=== PATIENT | female | born 1980 | race Caucasian/White ===

== ENCOUNTER 2017-11-09 09:52 | Emergency (ER) | payer OTHER ==
[2017-11-09] MEDS ORDERED: TORAdol 30 mg Injection IV ONE (10:04)
--- NOTE | 2017-11-09 10:08 | ERPHSYRPT ---
- History of Present Illness Time Seen by Provider: 11/09/17 10:00 Historian: patient Exam Limitations: no limitations Patient Subjective Stated Complaint: pt here for pain to left side of chest for 4 days, no injury, no fever . has not tried any otc Triage Nursing Assessment: pt alert, resp easy. skin w/d/p. no edema, Physician History: 37 y/o female comes to the ER with complaints of left sided chest pain that started 4 days ago. Pt describes the pain as a squeezing sensation, constant, worse with inspiration, 8/10 and pt has not taken any pain meds. Pt admits to mild cough that started yesterday. Pt denies any shortness of breath, palpitations or dizziness. Pt also denies any illicit drug use and has not been lifting any heavy objects. Pt has a significant family history with her father having an WA in his 30's. Timing/Duration: day(s) Activities at Onset: none Quality: stabbing Location: other (left chest) Chest Pain Radiation: no radiation Severity of Pain-Max: moderate Severity of Pain-Current: moderate Modifying Factors: Improves With: movement Associated Symptoms: denies symptoms Prior Chest Pain/Cardiac Workup: no prior chest pain Nitro Today/Relief: no nitro taken today Aspirin Treatment Today: no aspirin today Allergies/Adverse Reactions: Penicillins Allergy (Verified 11/09/17 10:04) Immunizations Up to Date: Yes - Review of Systems Constitutional: No Fever, No Chills Eyes: No Symptoms Ears, Nose, & Throat: No Symptoms Respiratory: No Cough, No Dyspnea Cardiac: Chest Pain, No Edema, No Syncope Abdominal/Gastrointestinal: No Abdominal Pain, No Nausea, No Vomiting, No Diarrhea Genitourinary Symptoms: No Dysuria Musculoskeletal: No Back Pain, No Neck Pain Skin: No Rash Neurological: No Dizziness, No Focal Weakness, No Sensory Changes Psychological: No Symptoms Endocrine: No Symptoms All Other Systems: Reviewed and Negative - Past Medical History Pertinent Past Medical History: No - Past Surgical History Past Surgical History: Yes Female Surgical History: Tubal Ligation - Social History Smoking Status: Current every day smoker Exposure to second hand smoke: Yes Drug Use: none Patient Lives Alone: No - Female History Hx Last Menstrual Period: 2 days ago Hx Now: No - Nursing Vital Signs Nursing Vital Signs: Initial Vital Signs Temperature 97.8 F 11/09/17 09:56 Pulse Rate 74 08/24/18 09:56 Respiratory Rate 16 11/09/17 09:56 Blood Pressure 124/85 11/09/17 09:56 O2 Sat by Pulse Oximetry 100 11/09/17 09:56 Pain Scale Pain Intensity 8 - Physical Exam General Appearance: no apparent distress, alert Eye Exam: PERRL/EOMI, eyes nml inspection Ears, Nose, Throat Exam: normal ENT inspection, moist mucous membranes Neck Exam: normal inspection, non-tender, supple, full range of motion Respiratory Exam: normal breath sounds, chest tenderness, lungs clear, No respiratory distress Cardiovascular Exam: regular rate/rhythm, normal heart sounds, normal peripheral pulses Gastrointestinal/Abdomen Exam: soft, No tenderness, No mass Back Exam: normal inspection, No CVA tenderness, No vertebral tenderness Extremity Exam: normal inspection, normal range of motion Neurologic Exam: alert, oriented x 3, cooperative, normal mood/affect, sensation nml, No motor deficits Skin Exam: normal color, warm, dry SpO2: 100 Oxygen Delivery: Room Air - Course Nursing assessment & vital signs reviewed: Yes EKG Interpreted by Me: RATE, NORMAL AXIS, NORMAL INTERVALS, NORMAL QRS, NORMAL ST-T Ordered Tests: Active Orders 24 hr Category Date Time Status Administrative Support Manager STAT Care 11/09/17 10:03 Active EKG-ER Only STAT Care 11/09/17 10:03 Active IV Insertion STAT Care 11/09/17 10:03 Active CHEST 2 VIEWS (PA AND LAT) Stat Exams 11/09/17 10:03 Taken CBC W DIFF Stat Lab 11/09/17 10:26 Completed CK-Creatinine Phosphokinase Stat Lab 11/09/17 10:26 Completed CMP Stat Lab 11/09/17 10:26 Completed HCG QUALITATIVE,SERUM Stat Lab 11/09/17 10:24 Completed TROPONIN Q3H Lab 11/09/17 10:26 Completed TROPONIN Q3H Lab 11/09/17 13:15 Ordered TROPONIN Q3H Lab 11/09/17 16:15 Ordered TROPONIN Q3H Lab 11/09/17 19:15 Ordered TROPONIN Q3H Lab 11/09/17 22:15 Ordered Medication Summary Discontinued Medications Generic Name Dose Route Start Last Admin Trade Name Freq PRN Reason Stop Dose Admin Ketorolac Tromethamine 30 mg 11/09/17 10:04 11/09/17 10:44 Toradol 30 Mg Injection IV 11/09/17 10:05 30 mg STAT ONE Administration Ketorolac Tromethamine Confirm 11/09/17 10:43 Toradol 30 Mg Injection Administered 11/09/17 10:44 Dose 30 mg .ROUTE .STK-MED ONE Lab/Rad Data: Laboratory Result Diagrams 11/09/17 10:26 11/09/17 10:26 Laboratory Results 11/09/17 11/09/17 11/09/17 Range/Units 10:26 10: 10:26 WBC 5.8 (4.0-10.5) K/mm3 RBC 4.90 (4.1-5.4) M/mm3 Hgb 13.8 (12.0-16.0) gm/dl Hct 40.8 (35-47) % MCV 83.3 (78-100) fl MCH 28.2 (26-32) pg MCHC 33.8 (32-36) g/dl RDW 17.1 H (11.5-14.0) % Plt Count 218 (150-450) K/mm3 MPV 10.1 H (6-9.5) fl Gran % 58.9 (36.0-66.0) % Eos # (Auto) 0.13 (0-0.5) Absolute Lymphs (auto) 1.74 (1.0-4.6) Absolute Monos (auto) 0.47 (0.0-1.3) Lymphocytes % 30.3 (24.0-44.0) % Monocytes % 8.2 (0.0-12.0) % Eosinophils % 2.3 (0.00-5.0) % Basophils % 0.3 (0.0-0.4) % Absolute Granulocytes 3.39 (1.4-6.9) Basophils # 0.02 (0-0.4) Sodium 139 (137-145) mmol/L Potassium 3.9 (3.5-5.1) mmol/L Chloride 104 (98-107) mmol/L Carbon Dioxide 24 (22-30) mmol/L Anion Gap 14.3 (5-15) MEQ/L BUN 10 (7-17) mg/dL Creatinine 0.63 (0.52-1.04) mg/dL Estimated GFR > 60.0 ML/MIN Glucose 94 (74-106) mg/dL Calcium 9.9 (8.4-10.2) mg/dL Total Bilirubin 0.60 (0.2-1.3) mg/dL AST 20 (14-36) U/L ALT 14 (0-35) U/L Alkaline Phosphatase 52 (38-126) U/L Creatine Kinase 66 (30-135) U/L Troponin I < 0.012 (0.000-0.034) ng/mL Serum Total Protein 7.6 (6.3-8.2) g/dL Albumin 4.7 (3.5-5.0) g/dL Serum , Qual (Negative) 11/09/17 Range/Units 10:24 WBC (4.0-10.5) K/mm3 RBC (4.1-5.4) M/mm3 Hgb (12.0-16.0) gm/dl Hct (35-47) % MCV (78-100) fl MCH (26-32) pg MCHC (32-36) g/dl RDW (11.5-14.0) % Plt Count (150-450) K/mm3 MPV (6-9.5) fl Gran % (36.0-66.0) % Eos # (Auto) (0-0.5) Absolute Lymphs (auto) (1.0-4.6) Absolute Monos (auto) (0.0-1.3) Lymphocytes % (24.0-44.0) % Monocytes % (0.0-12.0) % Eosinophils % (0.00-5.0) % Basophils % (0.0-0.4) % Absolute Granulocytes (1.4-6.9) Basophils # (0-0.4) Sodium (137-145) mmol/L Potassium (3.5-5.1) mmol/L Chloride (98-107) mmol/L Carbon Dioxide (22-30) mmol/L Anion Gap (5-15) MEQ/L BUN (7-17) mg/dL Creatinine (0.52-1.04) mg/dL Estimated GFR ML/MIN Glucose (74-106) mg/dL Calcium (8.4-10.2) mg/dL Total Bilirubin (0.2-1.3) mg/dL AST (14-36) U/L ALT (0-35) U/L Alkaline Phosphatase (38-126) U/L Creatine Kinase (30-135) U/L Troponin I (0.000-0.034) ng/mL Serum Total Protein (6.3-8.2) g/dL Albumin (3.5-5.0) g/dL Serum , Qual NEGATIVE (Negative) - Progress Progress: improved Progress Note: 11/09/17 11:46 Pt feels better after receiving toradol 30mg IV X 1 dose. The CXR and cardiac workup are within normal limits. Pt will be d/c home on toradol for costochondritis. - Departure Time of Disposition: 11:47 Departure Disposition: Home Clinical Impression: Costochondritis Condition: Stable Critical Care Time: No Instructions: Costochondritis (DC) Additional Instructions: Return to the ER if you should continue to have chest pain, shortness of breath , dizziness or palpitations. Prescriptions: Ketorolac Tromethamine [Toradol] 10 mg PO QID PRN #20 tablet PRN Reason: Pain
[2017-11-09 10:33] LABS: BASOPHIL % 0.3 % (0.0-0.4); Basophil (Absolute #) 0.02 (0-0.4); Eosinophil % 2.3 % (0.00-5.0); Eosinophil (Absolute #) 0.13 (0-0.5); Granulocyte Absolute (ANC) 3.39 (1.4-6.9); Granulocytes % 58.9 % (36.0-66.0); Hematocrit 40.8 % (35-47); Hemoglobin 13.8 gm/dl (12.0-16.0); Lymphocyte (Absolute #) 1.74 (1.0-4.6); Lymphocytes % 30.3 % (24.0-44.0); Mean Cell Volume 83.3 fl (78-100); Mean Corpuscular Hemoglobin 28.2 pg (26-32); Mean Corpuscular Hgb Concent. 33.8 g/dl (32-36); Mean Platelet Volume 10.1 fl (6-9.5); Monocyte (Absolute #) 0.47 (0.0-1.3); Monocytes % 8.2 % (0.0-12.0); Platelet Count 218 K/mm3 (150-450); Red Cell Distribution Width 17.1 % (11.5-14.0); White Blood Count 5.8 K/mm3 (4.0-10.5)
[2017-11-09] MEDS ORDERED: TORAdol 30 mg Injection ONE (10:43)
[2017-11-09 11:10] LABS: ALBUMIN 4.7 g/dL (3.5-5.0); ALKALINE PHOSPHATASE 52 U/L (38-126); ANION GAP 14.3 MEQ/L (5-15); BLOOD UREA NITROGEN 10 mg/dL (7-17); CHLORIDE 104 mmol/L (98-107); CK-Creatinine Phosphokinase 66 U/L (30-135); Calcium 9.9 mg/dL (8.4-10.2); Carbon Dioxide 24 mmol/L (22-30); Creatinine 1 0.63 mg/dL (0.52-1.04); Glucose 94 mg/dL (74-106); Potassium 3.9 mmol/L (3.5-5.1); SGOT/AST 20 U/L (14-36); SGPT/ALT 14 U/L (0-35); SODIUM 139 mmol/L (137-145); Total Protein 7.6 g/dL (6.3-8.2)
--- NOTE | 2017-11-09 11:51 | XRAY ---
Indication: Chest pain. Comparison: None PA/lateral chest hyperinflated and clear. Heart and mediastinal structures within normal limits. Bony thorax intact. Impression: Nonacute hyperinflated chest.
[2017-11-09 11:55] VITALS: BP 98/57; PULSE 60; O2SAT 99
== END 2017-11-09 11:58 | disposition home or self-care (01) ==
LOC: MERGE 09:52 → ED 09:52
DX: M94.0 Chondrocostal junction syndrome [Tietze] (principal)
CPT/HCPCS: 36000; 36415; 71046; 80053; 82550; 84484; 84703; 85025; 93005; 93041; 96374; 99284; J1885